=== PATIENT | male | born 1995 | race Caucasian/White ===

== ENCOUNTER 2019-03-22 07:22 | Emergency (ER) | payer BC ==
[~2019-03-22] VITALS: Ht 177.8 cm; Wt 86.2 kg
[2019-03-22 07:39] VITALS: BP 149/74
== END 2019-03-22 08:36 | disposition home or self-care (01) ==
LOC: ER 07:22
DX: S90.811A Abrasion, right foot, initial encounter (principal); X58.XXXA Exposure to other specified factors, initial encounter; Y93.89 Activity, other specified; Y99.8 Other external cause status; Y92.89 Other specified places as the place of occurrence of the external cause
CPT/HCPCS: 73630